=== PATIENT | female | born 1975 | race Caucasian/White ===

== ENCOUNTER 2016-08-17 12:40 | Emergency (ER) | payer SELFPAY ==
[~2016-08-17] VITALS: Ht 170.2 cm; Wt 62.1 kg
[2016-08-17] MEDS ORDERED: CYTOMEL25 MCG PO (12:59)
[2016-08-17] MEDS ORDERED: SYNTHROID100 MCG PO (12:59)
--- NOTE | 2016-08-17 13:01 | NUR ---
DR MCNALLY AT THE BEDSIDE FOR EVAL AND EXAM.
[2016-08-17] MEDS ORDERED: IV NORMAL SALINE 1000 ML BAG IV ONE ×2 (13:15→15:15)
[2016-08-17] MEDS ORDERED: ACETAMINOPHEN ES 500 MG TABLET PO ONE (13:15)
[2016-08-17] MEDS ORDERED: DEXAMETHASONE SOD PHOSPHATE 4 MG INJ IV ONE (13:15)
--- NOTE | 2016-08-17 13:25 | NUR ---
PT SIGNED CONSENT FOR WAIVER.
--- NOTE | 2016-08-17 13:32 | NUR ---
FLU SWAB COLLECTED AND SENT TO LAB.
[2016-08-17] MEDS ORDERED: DEXAMETHASONE SOD PHOSPHATE 10 MG INJ ONE (13:41)
[2016-08-17] MEDS ORDERED: ACETAMINOPHEN ES 500 MG TABLET ONE (13:41)
[2016-08-17] MEDS ORDERED: KETOROLAC TROMETHAMINE 30 MG INJ IVP ONE (14:30)
[2016-08-17] MEDS ORDERED: GENTAMICIN SULFATE INJ 80 MG in IV DEXTROSE 5% 100 ML IV ONE (14:30)
[2016-08-17] MEDS ORDERED: CEFTRIAXONE 1 G in IV DEXTROSE 5% 50 ML IV ONE (14:30)
[2016-08-17] MEDS ORDERED: KETOROLAC TROMETHAMINE 30 MG INJ ONE (14:39)
[2016-08-17] MEDS ORDERED: GENTAMICIN SULFATE 80 MG/2 ML VIAL ONE (14:47)
[2016-08-17] MEDS ORDERED: CEFTRIAXONE 1 G VIAL ONE (14:47)
[2016-08-17] MEDS ORDERED: ONDANSETRON IV *ER 4 MG/2 ML VIAL IV ONE (15:45)
[2016-08-17] MEDS ORDERED: MORPHINE SULFATE 4 MG/1 ML DISP.SYRIN IV ONE (15:45)
[2016-08-17] MEDS ORDERED: MORPHINE SULFATE 4 MG/1 ML DISP.SYRIN ONE (15:56)
[2016-08-17] MEDS ORDERED: ONDANSETRON 4 MG/2 ML VIAL ONE (15:56)
[2016-08-17 17:00] VITALS: BP 122/59; PULSE 84; RESP 15; O2SAT 99
--- NOTE | 2016-08-17 17:02 | NUR ---
Patient discharged to home in stable conditon. Written and verbal after care instructions given. Patient verbalizes understanding of instructions.
--- NOTE | 2016-08-22 17:15 | NUR ---
Received preliminary blood culture report from lab which shows gram (-), Dr Torres reviewed the report. I placed a follow up call to pt ) and spoke with her via telephone, pt states she is taking the prescribed antibiotic. Stressed follow up with pmd or return to ER for worsenings s/s.
== END 2016-08-17 17:02 | disposition home or self-care (01) ==
LOC: ER 12:40
DX: N12 Tubulo-interstitial nephritis, not specified as acute or chronic (principal); E03.9 Hypothyroidism, unspecified
CPT/HCPCS: 36415; 71010; 80048; 80076; 81001; 83605; 84484; 84703; 85025; 85730; 87040 ×2; 87086; 87400; 96361; 96365; 96367; 96375; 99285; A4663; J0696; J1100; J1580; J1885; J2270; J2405; J3490 ×2; J7030 ×2